=== PATIENT | male | born 1990 | race Caucasian/White ===

== ENCOUNTER → 2023-09-05 12:57 | Outpatient (BNVA) | payer SELFPAY | PROVIDERS: Visit Provider Physician Assistant Medical ==

== ENCOUNTER 2024-10-24 12:52 | Outpatient (AMB) | payer OTHER, SELFPAY ==
[2024-10-24 12:58] VITALS: BP 130/92; PULSE 62; RESP 18; TEMP 36.5; O2SAT 98; BMI 27.4
--- NOTE | 2024-10-24 12:58 | A.OFFPC_ITS ---
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 Transferring care from [place], [place] area; patient reports that he was last seen by previous PCP approximately 5-6 years ago. Medical records have not been requested and have not been received. 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 Reports that he is not sure how much of his depression is treatable He is currently not on any medication at this time The patient reports right shoulder pain, lower back pain and right upper quadrant pain that started after lifting something heavy at work. Reports that the pain is manageable, and he has been learning how to go through his day with it. However, the pain does increased during physical exertion. 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 Reports that exercise makes it better but is depression has been preventing him from exercising The patient denies chest pain, sob, heart palpitation and dizziness PFSH Medical History (Updated 10/24/24 @ 21:05 by CORINNA Goodman) ADHD Depression Surgical History H/O wisdom tooth extraction Family History Father FH: mental illness Chronic depression Mother No problems noted. 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 1. Little interest or pleasure in doing things: nearly every day 2. Feeling down, depressed, or hopeless: nearly every day 3. Trouble falling or staying asleep, or sleeping too much: nearly every day 4. Feeling tired or having little energy: nearly every day 5. Poor appetite or overeating: nearly every day 6. Feeling bad about yourself - or that you are a failure or have let yourself or your family down: nearly every day 7. Trouble concentrating on things, such as reading the newspaper or watching television: nearly every day 8. Moving or speaking so slowly that other people could have noticed. Or the opposite - being so fidgety or restless that you have been moving around a lot more than usual: nearly every day 9. Thoughts that you would be better off or of hurting yourself in some way: nearly every day Total score: 27 Depression Screening Interpretation: Positive Depression Screening Done: Yes 13527 - PHQ-9 Billing: Yes Source: Developed by Drs. Juanito John, Brian Arora and colleagues, with an educational drew from [email or web address]. Thrive Questionnaire Date Thrive assessed: 10/24/24 I am a: Patient What is your living situation today?: I do not have a steady places to live I am living in a car Within the past 12 months, did the food you bought not last and you didn't have the money to get more?: Never true Within the past 12 months, did you worry whether your food would run out before you got money to buy more?: Never true Do you have trouble paying for medicines?: I choose not to answer this question Do you have trouble getting transportation to medical appointments?: No Do you have trouble paying your heating and electricity bill?: I choose not to answer this question Do you have trouble taking care of your child, family member or friend?: No Do you have trouble with day-to-day activities such as bathing, preparing meals, shopping, managing finances, etc.?: Yes Are you currently unemployed and looking for a job?: No Are you interested in more education?: Yes Please select the resources that you would like help with: Daily support and Education Currently or been in a relationship where the following occur: I choose not to answer THRIVE Score: 1 AUDIT C Alcohol Use Questionnaire (AUDIT-C) 1. How often do you have a drink containing alcohol?: Never Total Score: 0 LOVELY-7 AMB Questionnaire LOVELY-7 Date LOVELY - 7 assessed: 10/24/24 Feeling nervous, anxious, or on edge: 3 = Nearly every day Not being able to stop or control worryin = Nearly every day Worrying too much about different things: 3 = Nearly every day Trouble relaxin = Nearly every day Being so restless that it is hard to sit still: 3 = Nearly every day Becoming easily annoyed or irritable: 3 = Nearly every day Feeling afraid as if something awful might happen: 3 = Nearly every day Total LOVELY-7 score (0-4 normal; 5-9 mild; 10-14 moderate; 15-21 severe): 21 Source: Developed by Drs. Juanito John, Brian Arora and colleagues, with an educational drew from [email or web address]. LOVELY-7 Assessment Billing LOVELY-7 Assessment Tool: LOVELY-7 Assessment 74187 Review of Systems Const Denies headache(s) Eyes Denies loss of vision ENT Denies vertigo, Denies dizziness, Denies headache(s) and Denies sore throat Card Denies chest pain, Denies leg edema and Denies lightheadedness Resp Denies cough, Denies hemoptysis and Denies wheezing GI Denies abdominal pain, Denies melena, Denies constipation, Denies diarrhea and Denies vomiting Denies dysuria, Denies urinary frequency and Denies urinary urgency Musc Reports back pain, Reports arthralgias (Right shoulder), Denies joint swelling, Denies numbness and Denies tingling Skin/Breast Reports other (right shoulder lump) Neuro Denies Abnormal speech present, Denies behavioral changes, Denies vertigo, Denies dizziness, Denies headache(s), Denies loss of vision, Denies memory loss, Denies numbness and Denies tingling Psych Reports anxiety, Denies behavioral changes, Reports depression, Denies memory loss, Denies panic attacks, Denies homicidal ideation and Denies suicidal ideation Kartik/Lymph Denies easy bleeding and Denies easy bruising Aller/Immun Denies wheezing Physical exam (Primary Care) Vital Signs: Last Vital Signs Temp 97.7 F 10/24/24 12:58 Pulse 62 10/24/24 12:58 Resp 18 10/24/24 12:58 BP 130/92 H 10/24/24 12:58 Pulse Ox 98 10/24/24 12:58 Oxygen Delivery Method Room Air 10/24/24 12:58 BMI result Body Mass Index 27.4 Tobacco/Smoking Status: Tobacco use Status Tobacco use date assessed 10/24/24 10/24/24 13:13 Patient Tobacco Use Status Never used Tobacco 10/24/24 13:13 e-Cigarette/Vaping Use Never Used 10/24/24 13:13 PHQ-9: PHQ-9 Score PHQ-9: Total score 27 10/24/24 13:50 Depression Screening Interpretation: Positive Thrive Assessment: Date of Thrive Assessment Date Thrive assessed 10/24/24 10/24/24 13:13 Currently or been in a relationship where the following occur: I choose not to answer Const General: healthy appearing, no acute distress, alert and awake Nutritional Appearance: well nourished Orientation/consciousness: oriented to person, oriented to place and oriented to time [facility] Ears: TM's normal bilaterally General nose exam: Normal nasal mucous membranes and turbinates present Eyes Conjunctivae: conjunctivae normal Sclerae: sclerae normal Pupils: Equal, round and reactive pupils present Neck Neck: Yes no lymphadenopathy and Yes no JVD Thyroid: Thyroid normal Carotids: no bruits Neck images: 2 1. right should soft mass Resp Effort & Inspection: normal respiratory effort and not tachypneic Auscultation: no crackles, no rales, no rhonchi and no wheezes Cardio Rate: regular rate Rhythm: regular rhythm Heart sounds: no murmurs and normal S1 and S2 GI Palpation (GI): Soft to palpation, nontender, no hepatomegaly and no splenomegaly Auscultation: normal bowel sounds Back/Spine/Pelvis Cervical Spine: No Cervical spine tenderness Thoracic/Lumbar Spine: No thoracic spinal tenderness and No lumbar spinal tenderness Skin General skin exam: no rashes or lesions noted and dry skin Neuro General: oriented to person, oriented to place and oriented to time Cranial nerves: Yes Equal, round and reactive pupils present Speech: No Abnormal speech present Gait exam (Neuro): Normal gait present Motor exam (neuro): no tremor noted Extrem Right upper extremity: full ROM Left upper extremity: full ROM Right lower extremity: full ROM; no edema Left lower extremity: full ROM; no edema Psych Mental Status: mental status grossly normal Speech and movement: Normal speech and movement present Affect: normal affect Attitude: cooperative Thought process: Normal thought process present Coding Level of Care Code New Pt Level 4 (37572) Diagnoses Depression, unspecified depression type F32.A Depression Type: unspecified Attention deficit hyperactivity disorder (ADHD), unspecified ADHD type F90.9 Attention deficit-hyperactivity disorder type: unspecified Mass of joint of right shoulder M25.811 Right upper quadrant pain R10.11 Acute bilateral low back pain without sciatica M54.50 Back pain location: low back pain Chronicity: acute Back pain laterality: bilateral Sciatica presence: without sciatica Additional Codes LOVELY-7 Assessment Billing - LOVELY-7 Assessment Tool: LOVELY-7 Assessment 38738 ([id number]) PHQ-9 - 41015 - PHQ-9 Billing: Yes ([id number]) Time Spent (min) 41 Assessment & Plan Assessment & Plan (1) Depression: Code(s): F32.A - Depression, unspecified Category: Medical Qualifiers: Depression Type: unspecified Qualified Code(s): F32.A - Depression, unspecified Plan: The patient reports a history depression and strong family history of depression. The patient father was depressed to the point of not leaving the house. Reports that he had a psychiatrist about 6 years ago and used to take fluoxetine and a stimulant for ADHD. The patient denies SI/HI I will refer the patient to psychiatry to evaluate and treat (2) ADHD: Code(s): F90.9 - Attention-deficit hyperactivity disorder, unspecified type Category: Medical Qualifiers: Attention deficit-hyperactivity disorder type: unspecified Qualified Code(s): F90.9 - Attention-deficit hyperactivity disorder, unspecified type Plan: The patient reports that he used to take a stimulant for this in the past, will refer the patient to psychiatry (3) Mass of joint of right shoulder: Code(s): M25.811 - Other specified joint disorders, right shoulder Category: Medical Plan: A soft tissue US order to further evaluate (4) Right upper quadrant pain: Code(s): R10.11 - Right upper quadrant pain Category: Medical Plan: The patient felt pain in his right upper quadrant after heavy lifting at work; he is endorsing pain with RUQ palpation . Informed the patient that this might be a muscle strain, but giving the his liver and gallbladder are in this region, will order and abdominal US to further evaluate (5) Back pain: Code(s): M54.9 - Dorsalgia, unspecified Category: Medical Qualifiers: Back pain location: low back pain Chronicity: acute Back pain laterality: bilateral Sciatica presence: without sciatica Qualified Code(s): M 54.50 - Low back pain, unspecified Plan: Lumbar x-ray ordered Orders: Orders 2 US abdomen limited Today R10.11 - Right upper quadrant pain, Z00.00 - Encounter for general adult medical examination without abnormal findings, Z77.018 - Contact with and (suspected) exposure to other hazardous metals XR lumbar spine 2-3V Today M54.50 - Low back pain, unspecified, Z00.00 - Encounter for general adult medical examination without abnormal findings, Z77.018 - Contact with and (suspected) exposure to other hazardous metals TSH reflex Free T4 Today Z00.00 - Encounter for general adult medical examination without abnormal findings, Z77.018 - Contact with and (suspected) exposure to other hazardous metals UA CC w/rflx Micro + Cult Today Z00.00 - Encounter for general adult medical examination without abnormal findings, Z77.018 - Contact with and (suspected) exposure to other hazardous metals Lipid Panel Today Z00.00 - Encounter for general adult medical examination without abnormal findings, Z77.018 - Contact with and (suspected) exposure to other hazardous metals Vitamin D 25-OH Total Today Z00.00 - Encounter for general adult medical examination without abnormal findings, Z77.018 - Contact with and (suspected) exposure to other hazardous metals US extremity nonvascular Today M25.811 - Other specified joint disorders, right shoulder Complete Blood Count Auto Diff Today Z00.00 - Encounter for general adult medical examination without abnormal findings, Z77.018 - Contact with and (suspected) exposure to other hazardous metals Comprehensive [place]. Panel Fast Today Z00.00 - Encounter for general adult medical examination without abnormal findings, Z77.018 - Contact with and (suspected) exposure to other hazardous metals Glucose Fasting Today Z00.00 - Encounter for general adult medical examination without abnormal findings, Z77.018 - Contact with and (suspected) exposure to other hazardous metals Heavy Metals Screen Blood Today Z00.00 - Encounter for general adult medical examination without abnormal findings, Z77.018 - Contact with and (suspected) exposure to other hazardous metals Referrals 2 Psychiatry Referral F41.9 - Anxiety disorder, unspecified
--- OUTSIDE RECORDS SUMMARY | 2024-10-24 15:25 | XMS_ITS | Data Portability ---
Author Organization [facility] [place] Address [address] [place] [id number] Care Team Providers Care Scientific Informatics Leader Name Role Phone YURIY FREIRE Primary Care Provider Assessment Encounter Date Assessment Date Assessment LastModified by Organization Details LastModified Time 09/28/2022 09/28/2022 He has right shoulder pain. He has that mass anteriorly that he says was not present before. It looks to me like a lipoma but if it was not present prior to this weekend then it's most likely a fluid-filled cyst. He either tore the rotator cuff or has a labral tear that leaked out some fluid. He lives up in [place] and he's down here working. I'm going to keep him out of work for now and then he's just going to end up going back home. I told him he needs to find an orthopedist up there and I recommended he get an MRI of that shoulder. Not available 09/29/2022 11:25:28 Plan of Treatment Reminders Order Date Submit Date Provider Last Modified By Organization Details Last Modified Time Details Appointments None record ed. Lab None record ed. Referral None record ed. Procedures None record ed. Surgeries None record ed. Imaging None record ed. Medication Orders None record ed. Patient TargetsNo targets recorded. Patient InstructionsNo instructions recorded. Reason for Referral None Reported. Problems Name Problem SNOMED Code Status Onset Date Resolution Date Notes Provider Name and Address Organization Details Recorded Time Pain of right shoulder joint [id number] 00 Active 2022 ROSA LI MD [address] [place], [id number], [facility] 09:37:55 Problem Notes None recorded. Medical Equipment None Reported. Allergies No known drug allergies Medications Not known to be on any medication Vitals Date Recorded Body height Body mass index (BMI) Body weight Provider Name and Address Organization Details Last Updated DateTime 09/28/2022 172.72 cm 26.6 kg/m2 16449.66 g ROSA LI MD [address], [place], [address], [facility] 09/28/2022 09:33:00 Social History Question Answer Notes LastModified by Organizat ion Details LastModified Time Tobacco Smoking Status Never Smoker ROSA LI MD [address], [place], [address], [facility] 09/28/2022 09:25:54 What Is Your Level Of Alcohol Consumption? Moderate [email or web address] Information not available 09/28/2022 Are You Blind Or Do You Have Difficulty Seeing? No [email or web address] Information not available 09/28/2022 What Is Your Level Of Caffeine Consumption? Moderate [email or web address] Information not available 09/28/2022 Are You Deaf Or Do You Have Serious Difficulty Hearing? No [email or web address] Information not available 09/28/2022 Do You Or Have You Ever Used E-cigarettes Or Vape? 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 Right [email or web address] Information not available 09/28/2022 Do You Have A Medical Power Of Compressor Repairer? No [email or web address] Information not available 09/28/2022 What Was The Date Of Your Most Recent Tobacco Screening? 09/28/2022 [email or web address] Information not available 09/28/2022 How Much Tobacco Do You Smoke? No [email or web address] Information not available 09/28/2022 Do You Use Any Illicit Or Recreational Drugs? No [email or web address] Information not available 09/28/2022 Have You Used IV Drugs? No [email or web address] Information not available 09/28/2022 Do You Or Have You Ever Used Any Other Forms Of Tobacco Or Nicotine? No [email or web address] Information not available 09/28/2022 Sex: Unknown Functional Status Question Answer Note LastModified by Organization D etails LastModified Time Are you able to care for yourself? Yes [email or web address] Information n ot available 09/28/2022 What is your exercise level? None [email or web address] Information not available 09/28/2022 Mental Status None recorded. Family History Nothing Reported. Medical History No medical history recorded. Past Encounters Encounter ID Performer Location Encounter Start Date Encounter Closed Date Diagnosis/Indication Diagnosis SNOMED-CT Code Diagnosis ICD10 Code Diagnosis Note [id number] ROSA LI MD [facility] [address] [place] [address] 09/28/2022 08:39:56 09/28/2022 15:42:31 Pain of right shoulder joint [id number] M25.511 Health Concerns Section Related Observation LastModified by Organization Detai ls LastModified Time None Recorded Concern Status LastModified by Organization Details LastModified Time None Recorded Advance Directives Directive None Recorded Payers Encounter Date Sequence Insurance Name Policy Number Policy Vail Covered Member ID Vail Member ID Guarantor Name 09/28/2022 1 [facility] [id number] Albaro Ryan [id number] Albaro Ryan Notes Date Note Type Note Provider Name and Address Organization Details Recorded Time 09/28/2022 text/html Mr. Ryan is a 32yo male here today for evaluation of right shoulder pain. 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 He started developing pain in the shoulder but never felt a specific pop. He's never had shoulder problems prior to this. He said he rested it for a little bit there at work but then a lump showed up on the right shoulder anteriorly and it's been hurting a lot since. He is wearing a sling and he is in a fair amount of pain. He's been icing it. ROSA LI MD [address], [place], [address], [facility] 09/29/2022 16:52:02
== END 2024-10-24 13:51 | disposition home or self-care (01) ==
LOC: HO.HMCH 12:53
DX: F32.A Depression, unspecified (principal); F90.9 Attention-deficit hyperactivity disorder, unspecified type; M25.811 Other specified joint disorders, right shoulder; R10.11 Right upper quadrant pain; M54.50 Low back pain, unspecified

== ENCOUNTER → 2024-10-24 12:52 | Outpatient (BNVA) | payer OTHER, SELFPAY | DX: F32.A Depression, unspecified (principal); F90.9 Attention-deficit hyperactivity disorder, unspecified type; M25.811 Other specified joint disorders, right shoulder; R10.11 Right upper quadrant pain; M54.50 Low back pain, unspecified | CPT/HCPCS: 96127 ==

== ENCOUNTER 2024-11-30 15:30 | Outpatient (REF) | payer OTHER, SELFPAY ==
--- NOTE | ~2024-11-30 | US_ITS ---
EXAMINATION: US ABDOMEN LIMITED CLINICAL INFORMATION: Right upper quadrant pain. COMPARISON: None available. TECHNIQUE: Real-time imaging of the right upper quadrant abdominal viscera. The exam is limited secondary to overlying bowel gas FINDINGS: PANCREAS: The pancreas completely obscured by gas. LIVER: The liver is normal in size. The liver contour is normal. Parenchymal echogenicity is normal. No focal hepatic lesion. There is no intrahepatic biliary duct dilatation seen. Normal hepatopedal flow seen in the middle portal vein on Doppler exam. GALLBLADDER: The gallbladder is physiologically distended without evidence of stones, sludge, polyps, wall thickening or pericholecystic fluid. There is nonspecific tenderness in right upper quadrant but negative Duran's sign. COMMON BILE DUCT: Normal in caliber measuring 0.3 cm in diameter. RIGHT KIDNEY: There is mild pelvic fullness. No renal calculi or focal parenchymal lesions. The kidney measures 10.5 cm in maximum dimension. FREE FLUID: None. US/US abdomen limited IMPRESSION: No echogenic gallstones or wall thickening. Minimal tenderness in the right upper quadrant but negative Duran's sign. Liver and CBD is normal. Mild right kidney fullness. No echogenic stones seen. Electronically signed by: Sathish Edwards MD 12/03/2024 07:52 AM EDT RP
--- NOTE | ~2024-11-30 | US_ITS ---
EXAMINATION: US EXTREMITY, NONVASCULAR CLINICAL INFORMATION: Palpable mass of right shoulder. COMPARISON: None available. TECHNIQUE: Grayscale and color Doppler ultrasound imaging was performed of the right shoulder in the area of clinical concern. FINDINGS: Within the area of clinical concern/palpable abnormality, there is a homogenous ovoid isoechoic to fat circumscribed mass, wider than tall, measuring 4.4 x 0.9 x 3.6 cm, with no internal color vascularity or soft tissue elements. This is consistent with a benign lipoma. There is no soft tissue mass, abnormal fluid collection, or abnormal lymph nodes identified. US/US extremity nonvascular IMPRESSION: Palpable abnormality corresponds with a 4.4 x 0.9 x 3.6 cm benign lipoma. Electronically signed by: Brady Solorio MD 12/03/2024 09:21 AM EDT
[2024-11-30 16:35] LABS: MANUAL DIFF FLAG NO
[2024-11-30 17:24] LABS: Basophils Percent Auto 0.5 % (0-2); Eosinophils Absolute Auto 0.1 X10*3/uL (0.0-0.4); Eosinophils Percent Auto 0.8 % (0-4); Hematocrit 44.4 % (42.0-52.0); Imm Gran Abs Auto 0.02 X10*3/uL (0.00-0.03); Imm Gran Pct Auto 0.3 % (0.0-0.4); Lymphocytes Absolute Auto 1.5 X10*3/uL (1.2-4.9); Lymphocytes Percent Auto 23.5 % (20-40); Mean Corpuscular HGB Conc 33.8 g/dl (31.0-36.0); Mean Corpuscular Hemoglobin 27.5 pg (27.0-33.0); Mean Corpuscular Volume 81.3 fL (80.0-98.0); Mean Platelet Volume 9.8 fL (9.4-12.4); Monocytes Absolute Auto 0.6 X10*3/uL (0.1-1.2); Monocytes Percent Auto 9.7 % (2-11); Neutrophils Absolute Auto 4.2 x10*3/uL (2.0-8.3); Neutrophils Percent Auto 65.2 % (45-73); Platelet Count 364 X10*3/uL (160-400); Red Blood Count 5.46 X10*6/uL (4.60-5.80); Red Cell Distribution Width 13.4 % (11.0-16.0); White Blood Count 6.4 X10*3/uL (4.8-10.8)
[2024-11-30 17:43] LABS: Appearance Urine Clear; Color Urine Yellow; Glucose Urine UA Negative (Negative); Leukocyte Esterase Urine Negative (Negative); Nitrite Urine Negative (Negative); Specific Gravity - Urine >= 1.030 (1.005-1.025); Urine Blood Negative (Negative); Urine Ketones 40 mg/dL (Negative); Urine Protein Negative (Neg-Trace)
[2024-11-30 18:40] LABS: Alanine Aminotransferase 27 U/L (0-40); Albumin Level 4.7 g/dL (3.5-5.0); Alkaline Phosphatase 62 U/L (39-117); Anion Gap 14 (12-20); Aspartate Amino Transferase 26 U/L (5-37); Bilirubin Total 1.3 mg/dL (0.0-1.0); Blood Urea Nitrogen 25 mg/dL (9-16); Calcium 9.7 mg/dL (8.4-10.2); Carbon Dioxide 27 mmol/L (22-29); Chloride 104 mmol/L (96-108); Cholesterol 226 mg/dL (<200); Estimated Glomerular Filt Rate > 60; Glucose Fasting 84 mg/dL (60-99); HDL Cholesterol 56 mg/dL (>40); LDL Cholesterol Calculated 155 mg/dL (<100); Potassium 4.2 mmol/L (3.3-5.1); Sodium 141 mmol/L (135-145); Total Protein 7.3 g/dL (6.5-8.0); Triglycerides 79 mg/dL (<150)
[2024-11-30 18:59] LABS: TSH reflex Free T4 0.76 uIU/mL (0.32-4.0); Vitamin D 25-OH Total 23.2 ng/mL (>30)
[2024-12-04 12:59] LABS: Arsenic, Blood <3 mcg/L (<23); Lead, Blood <1.0 mcg/dL (<3.5); Mercury, Blood <4 mcg/L (<=10)
== END 2024-11-30 15:31 | disposition home or self-care (01) ==
LOC: HO.US 15:30
DX: R10.11 Right upper quadrant pain (principal); Z00.00 Encounter for general adult medical examination without abnormal findings; Z77.018 Contact with and (suspected) exposure to other hazardous metals; M25.811 Other specified joint disorders, right shoulder; Z13.6 Encounter for screening for cardiovascular disorders
CPT/HCPCS: 36415; 76705; 76882; 80053; 80061; 81003; 82175; 82306; 83655; 83825; 84443; 85025

== ENCOUNTER → 2024-11-30 15:32 | Outpatient (BNV) | payer OTHER, SELFPAY | PROVIDERS: Visit Provider Radiology Diagnostic Radiology | DX: R22.31 Localized swelling, mass and lump, right upper limb (principal); R10.11 Right upper quadrant pain | CPT/HCPCS: 76705; 76882 ==

== ENCOUNTER 2025-02-15 10:23 | Outpatient (AMB) | payer OTHER, SELFPAY ==
[2025-02-15 10:27] VITALS: BP 116/70; PULSE 64; TEMP 35.9; O2SAT 98; BMI 27.1
--- NOTE | 2025-02-15 10:27 | A.OFFPC_ITS ---
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 Accompanied by: Self / Same As Patient Allergies codeine (CODEINE) Allergy (Unknown, Verified 02/15/25 10:39) RASH Medication List - Last Reconciled 02/15/25 by CORINNA Goodman bupropion HCl SR 100 mg PO DAILY Tobacco use date assessed: 02/15/25 Dental Screening Dental Screen Date: 02/15/25 Did you have a dental visit in the last 12 months?: Yes Did you have a dental problem in the last 6 months where you did not have access to dental care?: No Was dental information given to patient?: Patient has dentist HPI annual exam 2 HPI0 Details The patient is here for annual physical Dentist: up to date Eye:reports that he does not have any problems with his eyes Snellen: Right: Left: Corrected vision:no STI screening: n/a Colonoscopy: n/a Pap Smer:n/a PHQ-9:n/a Flu:does not usually COVID: x2 Tdap: reports having this recently but cannot remembers the exact date Diet: regular Exercise: no exercise The patient is a 34-year-old male presenting with depression. He has encountered difficulties in accessing psychiatric care, with many organizations offering only telehealth services or being unable to accept new patients. He experiences significant stress and distressing internal dialogue, which he attempts to manage by focusing on work and sleep. The patient denies panic attacks or significant anxiety but reports occasional racing thoughts, which is describes has not flight of ideas but more worrying about his life. He has previously used fluoxetine without recalling its effectiveness and has not tried Wellbutrin, though he has researched it. 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 He has hypercholesterolemia and has been advised to avoid high-cholesterol foods. He has received two COVID-19 vaccinations and a recent tetanus shot. [facility] Medical History ADHD Depression Surgical History H/O wisdom tooth extraction Family History Father FH: mental illness Chronic depression Mother No problems noted. 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 1. Little interest or pleasure in doing things: nearly every day 2. Feeling down, depressed, or hopeless: nearly every day 3. Trouble falling or staying asleep, or sleeping too much: nearly every day 4. Feeling tired or having little energy: nearly every day 5. Poor appetite or overeating: nearly every day 6. Feeling bad about yourself - or that you are a failure or have let yourself or your family down: nearly every day 7. Trouble concentrating on things, such as reading the newspaper or watching television: nearly every day 8. Moving or speaking so slowly that other people could have noticed. Or the opposite - being so fidgety or restless that you have been moving around a lot more than usual: nearly every day 9. Thoughts that you would be better off or of hurting yourself in some way: nearly every day Total score: 27 Depression Screening Interpretation: Positive Depression Screening Done: Yes Source: Developed by Drs. Juanito John, Luana La, Brian John and colleagues, with an educational drew from [employer]. Thrive Questionnaire Date Thrive assessed: 02/15/25 I am a: Patient What is your living situation today?: I do not have a steady places to live I am living in a car Within the past 12 months, did the food you bought not last and you didn't have the money to get more?: Never true Within the past 12 months, did you worry whether your food would run out before you got money to buy more?: Never true Do you have trouble paying for medicines?: I choose not to answer this question Do you have trouble getting transportation to medical appointments?: No Do you have trouble paying your heating and electricity bill?: I choose not to answer this question Do you have trouble taking care of your child, family member or friend?: No Do you have trouble with day-to-day activities such as bathing, preparing meals, shopping, managing finances, etc.?: Yes Are you currently unemployed and looking for a job?: No Are you interested in more education?: Yes Please select the resources that you would like help with: Daily support and Education Currently or been in a relationship where the following occur: I choose not to answer THRIVE Score: 1 AUDIT C Alcohol Use Questionnaire (AUDIT-C) 1. How often do you have a drink containing alcohol?: Never 3. How often do you have six or more drinks on one occasion?: Never Total Score: 0 LOVELY-7 AMB Questionnaire LOVELY-7 Date LOVELY - 7 assessed: 02/15/25 Feeling nervous, anxious, or on edge: 3 = Nearly every day Not being able to stop or control worryin = Nearly every day Worrying too much about different things: 3 = Nearly every day Trouble relaxin = Nearly every day Being so restless that it is hard to sit still: 3 = Nearly every day Becoming easily annoyed or irritable: 3 = Nearly every day Feeling afraid as if something awful might happen: 3 = Nearly every day Total LOVELY-7 score (0-4 normal; 5-9 mild; 10-14 moderate; 15-21 severe): 21 Source: Developed by Drs. Juanito John, Luana La, Brian John and colleagues, with an educational drew from [employer]. LOVELY-7 Assessment Billing LOVELY-7 Assessment Tool: LOVELY-7 Assessment 27298 Review of Systems Const Denies headache(s) Eyes Denies loss of vision ENT Denies vertigo, Denies dizziness, Denies headache(s) and Denies sore throat Card Denies chest pain, Denies leg edema and Denies lightheadedness Resp Denies cough, Denies hemoptysis and Denies wheezing GI Denies abdominal pain, Denies melena, Denies constipation, Denies diarrhea and Denies vomiting Denies dysuria, Denies urinary frequency and Denies urinary urgency Musc Denies arthralgias, Denies joint swelling, Denies numbness and Denies tingling Neuro Denies Abnormal speech present, Denies behavioral changes, Denies vertigo, Denies dizziness, Denies headache(s), Denies loss of vision, Denies memory loss, Denies numbness and Denies tingling Psych Denies anxiety, Denies behavioral changes, Denies depression, Denies memory loss and Denies panic attacks Kartik/Lymph Denies easy bleeding and Denies easy bruising Aller/Immun Denies wheezing Physical exam (Primary Care) Vital Signs: Last Vital Signs Temp 96.7 F L 02/15/25 10:27 Pulse 64 02/15/25 10:27 BP 116/70 02/15/25 10:27 Pulse Ox 98 02/15/25 10:27 Oxygen Delivery Method Room Air 02/15/25 10:27 BMI result Body Mass Index 27.1 Tobacco/Smoking Status: Tobacco use Status Tobacco use date assessed 02/15/25 02/15/25 10:34 Patient Tobacco Use Status Never used Tobacco 02/15/25 10:27 e-Cigarette/Vaping Use Never Used 02/15/25 10:27 PHQ-9: PHQ-9 Score PHQ-9: Total score 27 02/15/25 10:40 Depression Screening Interpretation: Positive Thrive Assessment: Date of Thrive Assessment Date Thrive assessed 02/15/25 02/15/25 10:34 Currently or been in a relationship where the following occur: I choose not to answer Const General: healthy appearing, no acute distress, alert and awake Nutritional Appearance: well nourished Orientation/consciousness: oriented to person, oriented to place and oriented to time HENMT Ears: TM's normal bilaterally General nose exam: Normal nasal mucous membranes and turbinates present Eyes Conjunctivae: conjunctivae normal Sclerae: sclerae normal Pupils: Equal, round and reactive pupils present Neck Neck: Yes no lymphadenopathy and Yes no JVD Thyroid: Thyroid normal Carotids: no bruits Neck images: 2 1. Right shoulder lipoma Resp Effort & Inspection: normal respiratory effort and not tachypneic Auscultation: no crackles, no rales, no rhonchi and no wheezes Cardio Rate: regular rate Rhythm: regular rhythm Heart sounds: S1 normal heart sound present, S2 normal heart sound present, no murmurs and normal S1 and S2 GI Palpation (GI): Soft to palpation, nontender, no hepatomegaly and no splenomegaly Auscultation: normal bowel sounds General: Yes no CVA tenderness Back/Spine/Pelvis Back: no CVA tenderness Skin General skin exam: dry skin and other (Right anterior shoulder lipoma) Neuro General: oriented to person, oriented to place and oriented to time Cranial nerves: Yes Equal, round and reactive pupils present Speech: No Abnormal speech present Gait exam (Neuro): Normal gait present Motor exam (neuro): no tremor noted Deep tendon reflexes (DTR's): Right triceps reflex intensity grade: 2+, Left triceps reflex intensity grade: 2+, Rt Biceps (C5, C6): 2+, Left biceps reflex intensity grade: 2+, Right brachioradialis reflex intensity grade: 2+, Left brachioradialis reflex intensity grade: 2+, Right patellar reflex intensity grade: 2+ and Left patellar reflex intensity grade: 2+ Extrem Right upper extremity: full ROM Left upper extremity: full ROM Right lower extremity: full ROM; no edema Left lower extremity: full ROM; no edema Psych Mental Status: mental status grossly normal Speech and movement: Normal speech and movement present Affect: normal affect Attitude: cooperative Thought process: Normal thought process present Results Reviewed Results Reviewed: Laboratory Tests 11/30/24 11/30/24 16:34 Unknown WBC 6.4 RBC 5.46 Hgb 15.0 Hct 44.4 MCV 81.3 MCH 27.5 MCHC 33.8 RDW 13.4 Plt Count 364 MPV 9.8 Immature Gran % (Auto) 0.3 Sodium 141 Potassium 4.2 Chloride 104 Carbon Dioxide 27 Anion Gap 14 BUN 25 H Creatinine 0.92 Estimated GFR > 60 Fasting Glucose 84 Calcium 9.7 Total Bilirubin 1.3 H AST 26 ALT 27 Alkaline Phosphatase 62 Total Protein 7.3 Albumin 4.7 Triglycerides 79 Cholesterol 226 H LDL Cholesterol, Calc 155 H HDL Cholesterol 56 25-OH Vitamin D Total 23.2 L TSH 0.76 Urine Color Yellow Urine Appearance Clear Urine pH 6.0 Ur Specific [place] >= 1.030 H Urine Protein Negative Urine Glucose (UA) Negative Urine Ketones 40 Urine Blood Negative Urine Nitrite Negative Ur Leukocyte Esterase Negative Coding Level of Care Code Est Pt Prev Care 18-39y([id number]) Diagnoses Annual physical exam Z00.00 Depression, unspecified depression type F32.A Depression Type: unspecified Attention deficit hyperactivity disorder (ADHD), unspecified ADHD type F90.9 Attention deficit-hyperactivity disorder type: unspecified Mass of joint of right shoulder M25.811 Right upper quadrant pain R10.11 Acute bilateral low back pain without sciatica M54.50 Back pain location: low back pain Chronicity: acute Back pain laterality: bilateral Sciatica presence: without sciatica Additional Codes LOVELY-7 Assessment Billing - LOVELY-7 Assessment Tool: LOVELY-7 Assessment 74234 ([id number]) Time Spent (min) 36 Assessment & Plan Assessment & Plan (1) Annual physical exam: Code(s): Z00.00 - Encounter for general adult medical examination without abnormal findings Category: Medical Plan: Preventative guidelines and recent labs reviewed with the patient (2) Depression: Code(s): F32.A - Depression, unspecified Category: Medical Qualifiers: Depression Type: unspecified Qualified Code(s): F32.A - Depression, unspecified Plan: The patient reports a history depression and strong family history of depression. The patient father was depressed to the point of not leaving the house. Reports that he had a psychiatrist about 6 years ago and used to take fluoxetine and a stimulant for ADHD. The patient denies SI/HI I was referred the patient to psychiatry with the patient has been having issues finding a provider willing to do on-site visits. Bupropion HCl SR 100 mg daily started. Reach out to the communication navigation staff to assist the patient in finding a psychiatrist as soon as possible. Follow up appointment in 4 weeks to re-evaluate (3) ADHD: Code(s): F90.9 - Attention-deficit hyperactivity disorder, unspecified type Category: Medical Qualifiers: Attention deficit-hyperactivity disorder type: unspecified Qualified Code(s): F90.9 - Attention-deficit hyperactivity disorder, unspecified type Plan: The patient reports that he used to take a stimulant for this in the past, will refer the patient to psychiatry (4) Mass of joint of right shoulder: Code(s): M25.811 - Other specified joint disorders, right shoulder Category: Medical Plan: A soft tissue US done on on 11/30/2024 shows a benign lipoma measuring 4.4 x 0.9 x3 0.6 cm Patient reports that this isn't bothersome (5) Right upper quadrant pain: Code(s): R10.11 - Right upper quadrant pain Category: Medical Plan: The patient felt pain in his right upper quadrant after heavy lifting at work; he is endorsing pain with RUQ palpation . Informed the patient that this might be a muscle strain, but giving the his liver and gallbladder are in this region on prior visit. Abdominal ultrasound done on 11/30/2024 shows: No echogenic gallstones are wall thickening. Minimal tenderness in the right upper quadrant but negative Duran's sign. The patient is denying pain at today's visit. (6) Back pain: Code(s): M54.9 - Dorsalgia, unspecified Category: Medical Qualifiers: Back pain location: low back pain Chronicity: acute Back pain laterality: bilateral Sciatica presence: without sciatica Qualified Code(s): M 54.50 - Low back pain, unspecified Plan: Patient reports on his previous visit similarly chronic lower back pain. A lumbar x-ray was ordered on 10/24/2024; this has not been completed as yet, however, the patient reports that his back isn't bad today and is feeling much better. Medications: New 2 bupropion HCl SR 100 mg PO DAILY 30 tabs 3RF bupropion HCl SR 100 mg PO DAILY 90 tabs 3RF
--- OUTSIDE RECORDS SUMMARY | 2025-02-15 10:39 | XMS_ITS | Clinical Summary ---
Author Organization [facility] Address [address] [place] [phone] Phone Care Team Providers Care Interior Design Professor Name Role Phone Lien Ruiz Primary Care Provider [phone] Allergies Active Allergy Reactions Criticality Noted Date Comments Codeine Rash Low 03/19/2018 Medications No known medications Social History Tobacco Use Types Packs/Day Years Used Date Smoking Tobacco: Never Smokeless Tobacco: Never Alcohol Use Standard Drinks/Week Comments Yes 0 (1 standard drink = 0.6 oz pur e alcohol) occasional Education Answer Date Recorded Are you interested in more education? Not on alessandro e 11/19/2022 Are you concerned about learning? Not on file 11/19/2022 No 11/19/2022 No 11/19/2022 Digital Access Answer Date Recorded No 12/20/2022 No 12/20/2022 No 12/20/2022 Reliable internet access at home? Not on file 12/20/2022 Device with a working camera? Not on file Sex and Gender Information Value Date Recorded Sex Assigned at Not on file Legal Sex Male 9:08 PM EDT Gender Identity Not on file Sexual Orientation Not on file Last Filed Vital Signs Vital Sign Reading Time Taken Comments Blood Pressure 150/97 03/19/2018 7:45 AM EDT Pulse 49 03/19/2018 7:45 AM EDT Temperature 36.7 C (98 F) 03/19/2018 7:08 AM EDT Respiratory Rate 16 03/19/2018 7:45 AM EDT Oxygen Saturation 96% 03/19/2018 7:45 AM EDT Inhaled Oxygen Concentration - - Weight 72.6 kg (160 lb) 03/19/2018 4:28 AM EDT Height 172.7 cm (5' 8 ) 03/19/2018 4:28 AM EDT Body Mass Index 24.33 03/19/2018 4:28 AM EDT Plan of Treatment Health Maintenance Due Date Last Done Comments LIPID PANEL 1988 DEPRESSION SCREENING 2000 HEPATITIS C SCREENING 2006 HIV ONE-TIME SCREENING (18-6 5 YEARS) 2006 COVID-19 VACCINE (3 - 2023-2 5 season) 2024 07/28/2021, 10/23/2020 Adult Td,Tdap Booster 03/28/2027 03/28/2017 SMOKING STATUS SCREENING (On ce After 26 Yrs) Completed 11/22/2021 HEPATITIS A VACCINES Aged Out No long er eligible based on patient's age to complete this topic HIB VACCINES Aged Out No longer eligi ble based on patient's age to complete this topic MENINGOCOCCAL VACCINES (ACWY) Aged Out No longer eligible based on patient's age to complete this topic MENINGOCOCCAL VACCINES (B) Aged Out N o longer eligible based on patient's age to complete this topic PNEUMOCOCCAL VACCINES (0-49 years) Aged Out No longer eligible b ased on patient's age to complete this topic Medical Devices Not on file Insurance [facility] Care Teams Interior Design Professor Relationship Specialty Start Date End Date [place] [id number] [email or web address] PCP - General Unknown Provider Specialty 01/19/19 Additional Source Comments The information contained in this document represents components of the legal health record. It is not the complete legal health record.[facility]
--- OUTSIDE RECORDS SUMMARY | 2025-02-15 10:39 | XMS_ITS | Data Portability ---
Author Organization [facility] [place] Address [address] [place] [phone] Care Team Providers Care Convention Planner Name Role Phone YURIY FREIRE Primary Care [...] out some fluid. He lives up in [place] and he's down here working. I'm going to keep him out of work for now and then he's just going to end up going back home. I told him he needs to find an orthopedist up there and I recommended he get an MRI of that shoulder. [email or web address] Not available 09/29/2022 11:25:28 Plan of Treatment [...] Recorded Time Pain of right shoulder joint [id number] 00 Active 2022 ROSA LI MD [address] [place], [address], [facility] 09:37:55 Problem Notes None recorded. Medical Equipment None Reported. Allergies No known drug allergies Medications Not known to be on any medication Vitals Date Recorded Body height Body mass index (BMI) Body weight Provider Name and Address Organization Details Last Updated DateTime 09/28/2022 172.72 cm 26.6 kg/m2 65250.66 g ROSA LI MD [address], [place], [address], [facility] 09/28/2022 09:33:00 Social History Question Answer Notes LastModified by Organizat ion Details LastModified Time Tobacco Smoking Status Never Smoker ROSA LI MD [address], [place], [address], [facility] 09/28/2022 09:25:54 Are You Blind Or Do You Have Difficulty Seeing? No [email or web address] Information not available 09/28/2022 What Is Your Level Of Caffeine Consumption? Moderate Information not available 09/28/2022 Are You Deaf Or Do You Have Serious Difficulty Hearing? No [email or web address] Information not available 09/28/2022 Which Of Your Hands Is Dominant? Right [email or web address] Information not available 09/28/2022 Do You Have A Medical Power Of Furnace Operator Oil Or Gas? No [email or web address] Information not available 09/28/2022 What Was The Date Of Your Most Recent Tobacco Screening? 09/28/2022 [email or web address] Information not available 09/28/2022 How Much Tobacco Do You Smoke? No [email or web address] Information not available 09/28/2022 Have You Used IV Drugs? No [email or web address] Information not available 09/28/2022 Sex: Unknown Functional Status Question Answer Note LastModified by Organizat ion Details LastModified Time Do you use any illicit or recreational drugs? No [email or web address] Information not available 09/28/2022 Do you or have you ever used any other forms of tobacco or nicotine? No Information not available 09/28/2022 What is your level of alcohol consumption? Moderate [email or web address] Information not available 09/28/2022 Are you able to care for yourself independently? 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 Never used electronic cigarettes [email or web address] Information not available 09/28/2022 What is your exercise level? None [email or web address] Information not available 09/28/2022 Mental Status None recorded. Family History Nothing Reported. Medical History No medical history recorded. Past Encounters Encounter ID Performer Location Encounter Start Date Encounter Closed Date Diagnosis/Indication Diagnosis SNOMED-CT Code Diagnosis ICD10 Code Diagnosis Note [id number] ROSA LI MD [place] [address] [place] [address] 09/28/2022 08:39:56 09/28/2022 15:42:31 Pain of right shoulder joint [id number] M25.511 Health Concerns Section Related Observation LastModified by Organization Detai ls LastModified Time None Recorded Concern Status LastModified by Organization Details LastModified Time None Recorded Advance Directives Directive None Recorded Payers Insurance Date Sequence Insurance Name Policy Number Policy Vail Covered Member ID Vail Member ID Guarantor Name 10/13/2022 1 [facility] [id number] Albaro Ryan [id number] Albaro Ryan Notes Date Note Type Note [...] it. ROSA LI MD [address], [place], [address], [facility] 09/29/2022 16:52:02
== END 2025-02-15 11:21 | disposition home or self-care (01) ==
LOC: HO.HMCH 10:23
DX: Z00.00 Encounter for general adult medical examination without abnormal findings (principal); F32.A Depression, unspecified; F90.9 Attention-deficit hyperactivity disorder, unspecified type; M25.811 Other specified joint disorders, right shoulder; R10.11 Right upper quadrant pain; M54.50 Low back pain, unspecified

== ENCOUNTER → 2025-02-15 10:23 | Outpatient (BNVA) | payer OTHER, SELFPAY | DX: Z00.00 Encounter for general adult medical examination without abnormal findings (principal); F32.A Depression, unspecified; D17.39 Benign lipomatous neoplasm of skin and subcutaneous tissue of other sites; E78.00 Pure hypercholesterolemia, unspecified; F90.9 Attention-deficit hyperactivity disorder, unspecified type; R10.11 Right upper quadrant pain; M54.50 Low back pain, unspecified | CPT/HCPCS: 96127 ==

== ENCOUNTER 2025-03-29 13:30 | Outpatient (AMB) | payer OTHER, SELFPAY ==
--- NOTE | 2025-03-29 13:15 | MHC.PC.OV ---
Intake Visit Reasons: depression-could be telehealth Zinc Skimmer Required: No Allergies codeine (CODEINE) Allergy (Unknown, Verified 03/29/25 13:53) RASH Medication List - Last Reconciled 03/29/25 by CORINNA Goodman bupropion HCl SR 100 mg PO DAILY Tobacco use date assessed: 03/29/25 Dental Screening Dental Screen Date: 03/29/25 Did you have a dental visit in the last 12 months?: Yes Did you have a dental problem in the last 6 months where you did not have access to dental care?: No Was dental information given to patient?: Patient has dentist HPI depression-could be telehealth HPI Details This is a medically necessary visit as the patient would typically be seen in the office, however, the patient is unable to come in the office so the visit was converted to an audiovisual, telephone visit format with patient's consent and request. Patient understands that this visit was in place of an in person visit and is aware of the risks of communicating via phone/computer and verbally consents The patient is a 34-year-old male with past medical history of ADHD, depression and some anxiety. He is presenting via telehealth today to evaluate his depression. At previous appointment the patient was started on Wellbutrin 100 mg daily. He has been trying to find a psychiatrist without any much success. Patient verbalized that he did received an appointment which will be 15 minutes after this appointment with a psychiatrist in [place]. The patient travels for work and this has been complicating the finding of a steady reliable psychiatry care. The patient reports that the Wellbutrin has not helped much but he is not in a worse place than he was before. Discussed with the patient that it does not make sense changing anything sense he will be talking to a psychiatrist after this appointment. Will defer to the psychiatrist and follow up with the patient in 3 months to see what changes were made and how we could assist in this process. [facility] Medical History ADHD Depression Surgical History H/O wisdom tooth extraction Family History Father FH: mental illness Chronic depression Mother No problems noted. 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 1. Little interest or pleasure in doing things: nearly every day 2. Feeling down, depressed, or hopeless: nearly every day 3. Trouble falling or staying asleep, or sleeping too much: nearly every day 4. Feeling tired or having little energy: nearly every day 5. Poor appetite or overeating: nearly every day 6. Feeling bad about yourself - or that you are a failure or have let yourself or your family down: nearly every day 7. Trouble concentrating on things, such as reading the newspaper or watching television: nearly every day 8. Moving or speaking so slowly that other people could have noticed. Or the opposite - being so fidgety or restless that you have been moving around a lot more than usual: nearly every day 9. Thoughts that you would be better off or of hurting yourself in some way: nearly every day Total score: 27 Depression Screening Interpretation: Positive Depression Screening Done: Yes Source: Developed by Drs. Juanito John, Luana La, Brian John and colleagues, with an educational drew from [employer]. Thrive Questionnaire Date Thrive assessed: 03/29/25 I am a: Patient What is your living situation today?: I do not have a steady places to live I am living in a car Within the past 12 months, did the food you bought not last and you didn't have the money to get more?: Never true Within the past 12 months, did you worry whether your food would run out before you got money to buy more?: Never true Do you have trouble paying for medicines?: I choose not to answer this question Do you have trouble getting transportation to medical appointments?: No Do you have trouble paying your heating and electricity bill?: I choose not to answer this question Do you have trouble taking care of your child, family member or friend?: No Do you have trouble with day-to-day activities such as bathing, preparing meals, shopping, managing finances, etc.?: Yes Are you currently unemployed and looking for a job?: No Are you interested in more education?: Yes Currently or been in a relationship where the following occur: I choose not to answer THRIVE Score: 1 AUDIT C Alcohol Use Questionnaire (AUDIT-C) 1. How often do you have a drink containing alcohol?: Never 3. How often do you have six or more drinks on one occasion?: Never Total Score: 0 LOVELY-7 AMB Questionnaire LOVELY-7 Date LOVELY - 7 assessed: 03/29/25 Feeling nervous, anxious, or on edge: 3 = Nearly every day Not being able to stop or control worryin = Nearly every day Worrying too much about different things: 3 = Nearly every day Trouble relaxin = Nearly every day Being so restless that it is hard to sit still: 3 = Nearly every day Becoming easily annoyed or irritable: 3 = Nearly every day Feeling afraid as if something awful might happen: 3 = Nearly every day Total LOVELY-7 score (0-4 normal; 5-9 mild; 10-14 moderate; 15-21 severe): 21 Source: Developed by Drs. Juanito John, Luana La, Brian John and colleagues, with an educational drew from [employer]. Review of Systems Const Denies body aches, Denies chills, Denies fever(s), Denies headache(s) and Denies poor appetite Eyes Reports no additional complaints ENT Denies dysphagia, Denies dizziness, Denies headache(s) and Denies odynophagia Card Denies chest pain, Denies syncope, Denies edema, Denies irregular heart rhythm, Denies lightheadedness and Denies dyspnea Resp Denies cough and Denies dyspnea GI Denies abdominal pain, Denies constipation, Denies dysphagia, Denies diarrhea, Denies nausea, Denies odynophagia and Denies vomiting Reports no additional complaints Musc Reports no additional complaints and Denies abnormal gait Skin/Breast Reports system reviewed and no additional complaints, except as documented Neuro Denies abnormal gait, Denies dizziness, Denies syncope and Denies headache(s) Psych Reports depression, Reports anhedonia, Denies homicidal ideation and Denies suicidal ideation Physical exam (Primary Care) Tobacco/Smoking Status: Tobacco use Status Tobacco use date assessed 03/29/25 03/29/25 13:17 Patient Tobacco Use Status Never used Tobacco 03/29/25 13:17 e-Cigarette/Vaping Use Never Used 03/29/25 13:17 PHQ-9: PHQ-9 Score PHQ-9: Total score 27 03/29/25 13:40 Depression Screening Interpretation: Positive Thrive Assessment: Date of Thrive Assessment Date Thrive assessed 03/29/25 03/29/25 13:17 Currently or been in a relationship where the following occur: I choose not to answer Const Other: Telemedicine visit with real time audio video Received verbal consent given by patient for today's visit via telemedicine Physical examination is not performed as visit / consultation today is done over videoconference - Telehealth visit All physical findings indicated here, if present, are as per patient's and / or caregivers / proxy's report and visual inspection over videoconference, if appropriate or applicable Telehealth Telehealth Telehealth Platform: Telephone Location of provider rendering services: practice address Location of patient: other Patient Identification confirmed using: Name, : Yes Telehealth method: voice only Patient verbally consented to treatment: Yes Patient verbally consented to billing insurance company: Yes Patient informed of any privacy concerns related to visit: Yes Minutes spent on Phone/Video with Pt.: 15 Coding Level of Care Code Tele Est Pt Level 3 (02777) Diagnoses Depression, unspecified depression type F32.A Depression Type: unspecified Time Spent (min) 31 Assessment & Plan Assessment & Plan (1) Depression: Code(s): F32.A - Depression, unspecified Category: Medical Qualifiers: Depression Type: unspecified Qualified Code(s): F32.A - Depression, unspecified Plan: The patient reports a history depression and strong family history of depression. The patient father was depressed to the point of not leaving the house. Reports that he had a psychiatrist about 6 years ago and used to take fluoxetine and a stimulant for ADHD. He was referred to psychiatry but he has been having difficulty finding a provider that we will do on-site visits. Bupropion HCl SR 100 mg daily started. Reach out to the communication navigation staff to assist the patient in finding a psychiatrist as soon as possible at our previous visit Today the patient reports during visit that he has a an appointment with a psychiatrist in about 15 minutes after this appointment. We will defer to the psychiatrist to make any changes regarding his psych medication and have the patient follow up in 3 months via telehealth because he has been traveling for work. He continues to denies SI/HI
--- OUTSIDE RECORDS SUMMARY | 2025-03-29 13:47 | XMS_ITS | Clinical Summary ---
Author Organization [facility] Address [address] [place] [id number] Phone Care Team Providers Care Dry Cleaner Presser Name Role Phone Lien Ruiz Primary Care Provider [phone] Allergies Active Allergy Reactions Criticality Noted Date [...] topic Medical Devices Not on file Insurance [facility] Care Teams Dry Cleaner Presser Relationship Specialty Start Date End [place] [address] [email or web address] PCP - General Unknown Provider Specialty 01/19/19 Additional Source Comments The information contained in this document represents components of the legal health record. It is not the complete legal health record.[facility]
== END 2025-03-29 15:24 | disposition home or self-care (01) ==
LOC: HO.HMCH 13:30
DX: F32.A Depression, unspecified (principal)

== ENCOUNTER 2025-06-28 11:21 | Outpatient (AMB) | payer OTHER, SELFPAY ==
--- NOTE | 2025-06-28 11:21 | MHC.PC.OV ---
Intake Visit Reasons: hld/vit -d/depression Icer Machine Operator Required: No Accompanied by: Self / Same As Patient Allergies codeine (CODEINE) Allergy (Unknown, Verified 06/28/25 11:28) RASH Medication List - Last Reconciled 06/28/25 by CORINNA Goodman bupropion HCl SR 100 mg PO DAILY Tobacco use date assessed: 06/28/25 Dental Screening Dental Screen Date: 06/28/25 Did you have a dental visit in the last 12 months?: Yes Did you have a dental problem in the last 6 months where you did not have access to dental care?: No Was dental information given to patient?: Patient has dentist HPI hld/vit -d/depression HPI Details This is a medically necessary visit as the patient would typically be seen in the office, however, the patient is unable to come in the office so the visit was converted to an audiovisual, telephone visit format with patient's consent and request. Patient understands that this visit was in place of an in person visit and is aware of the risks of communicating via phone/computer and verbally consents. The patient is a 35-year-old male with significant past medical history of depression, ADHD He is presenting for follow up appointment to evaluate depression and previous medication that was started, along with Psychiatry referral that was placed The patient reports that he recently has been connecting with online Psychiatry and since had 3 different providers He will be meeting with the same provider that he met with the last time at his follow up appointment His Wellbutrin that was started at 100 mg was increased by Psychiatry to 300 mg However, there is a plan for med change. Plans to start fluoxetine and to taper down Wellbutrin The patient reports that he is doing okay in general, he describes it as he had worse days before Patient reports new concern of back pain, explains that he has a very physical job and he has to mask his pain at work He also states that the pain has been debilitating in the mornings but gets better has the day goes on He describes a stiffness and at times in the lower back. The patient reports that he can not take time off from work and has to plan head for physical therapy. Adding, that the pain feels like it is radiating down is legs as well, concerning him that he might have sciatica. [facility] Medical History ADHD Depression Surgical History H/O wisdom tooth extraction Family History Father FH: mental illness Chronic depression Mother No problems noted. 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 Juanito John, Luana La, Brian John and colleagues, with an educational drew from [employer]. Review of Systems Const Denies body aches, Denies chills, Denies fever(s), Denies headache(s) and Denies poor appetite Eyes Reports no additional complaints ENT Denies dysphagia, Denies dizziness, Denies headache(s) and Denies odynophagia Card Denies chest pain, Denies syncope, Denies edema, Denies irregular heart rhythm, Denies lightheadedness and Denies dyspnea Resp Denies cough and Denies dyspnea GI Denies abdominal pain, Denies constipation, Denies dysphagia, Denies diarrhea, Denies nausea, Denies odynophagia and Denies vomiting Reports no additional complaints Musc Denies abnormal gait, Reports back pain and Reports radiating pain into limb Skin/Breast Reports system reviewed and no additional complaints, except as documented Neuro Denies abnormal gait, Denies dizziness, Denies syncope and Denies headache(s) Psych Reports depression, Reports anhedonia, Denies homicidal ideation and Denies suicidal ideation Physical exam (Primary Care) Tobacco/Smoking Status: Tobacco use Status Tobacco use date assessed 06/28/25 06/28/25 11:24 Patient Tobacco Use Status Never used Tobacco 06/28/25 11:24 e-Cigarette/Vaping Use Never Used 06/28/25 11:24 Thrive Assessment: Date of Thrive Assessment Date Thrive assessed 03/29/25 06/28/25 11:24 Const Other: Telemedicine visit with real time audio video Received verbal consent given by patient for today's visit via telemedicine Physical examination is not performed as visit / consultation today is done over videoconference - Telehealth visit All physical findings indicated here, if present, are as per patient's and / or caregivers / proxy's report and visual inspection over videoconference, if appropriate or applicable Telehealth Telehealth Telehealth Platform: Telephone Location of provider rendering services: practice address Location of patient: address on file Patient Identification confirmed using: Name, : Yes Telehealth method: voice only Patient verbally consented to treatment: Yes Patient verbally consented to billing insurance company: Yes Patient informed of any privacy concerns related to visit: Yes Coding Level of Care Code Est Pt Level 3 (54942) Diagnoses Depression, unspecified depression type F32.A Depression Type: unspecified Bilateral low back pain with sciatica, sciatica laterality unspecified, unspecified chronicity M54.40 Chronicity: unspecified Back pain laterality: bilateral Sciatica presence: with sciatica Sciatica laterality: sciatica laterality unspecified Time Spent (min) 28 Assessment & Plan Assessment & Plan (1) Depression: Code(s): F32.A - Depression, unspecified Category: Medical Qualifiers: Depression Type: unspecified Qualified Code(s): F32.A - Depression, unspecified Plan: Encouraged CBT Previously started bupropion 100 mg was increased to 300 mg by online psychiatrist Recent plans to start fluoxetine and titrate down bupropion Denies SI/HI Follow up with Psychiatry as scheduled (2) Low back pain: Code(s): M54.50 - Low back pain, unspecified Category: Medical Qualifiers: Chronicity: unspecified Back pain laterality: bilateral Sciatica presence: with sciatica Sciatica laterality: sciatica laterality unspecified Qualified Code(s): M54.40 - Lumbago with sciatica, unspecified side Plan: Reports ongoing low back pain due to physical job demand. Describes as crippling, stiffness in the mornings at time that gets better as the day goes on. Lumbar x-ray ordered to further evaluate. We will try the patient on gabapentin 100 mg at bedtime p.r.n.. Physical therapy referral placed to evaluate and treat. The patient is also looking for on in office appointment after July 08 to the end of June to be evaluated for his back issue. Orders: Orders XR lumbar spine 2-3V 06/28/25 M54.50 - Low back pain, unspecified PT Evaluation and Treatment Today M54.40 - Lumbago with sciatica, unspecified side Medications: New gabapentin 100 mg PO BEDTIME PRN 30 caps 3RF back pain
== END 2025-06-28 11:53 | disposition home or self-care (01) ==
LOC: HO.HMCH 11:21
DX: F32.A Depression, unspecified (principal); M54.40 Lumbago with sciatica, unspecified side

== ENCOUNTER 2025-07-09 06:49 | Outpatient (REF) | payer OTHER, SELFPAY ==
--- NOTE | ~2025-07-09 | XR_ITS ---
EXAMINATION: XR LUMBOSACRAL SPINE CLINICAL INFORMATION: M54.50 - Low back pain, unspecified COMPARISON: None available. TECHNIQUE: AP and lateral views. FINDINGS: Mild multilevel endplate sclerosis. Decreased intervertebral disc height at L5-S1. Loss of the physiologic lumbar lordosis.. No acute cortical disruption or gross malalignment. No lytic or blastic lesions. XR/XR lumbar spine 2-3V IMPRESSION: Spondylosis at L5-S1. Loss of the physiologic lumbar lordosis. Consider positional versus muscle spasm. Electronically signed by: Liborio Wayne MD 07/09/2025 07:29 AM KAMINI HINSON
--- OUTSIDE RECORDS SUMMARY | 2025-07-09 06:52 | XMS_ITS | Clinical Summary ---
Author Organization [facility] Address [address] [address] Phone Care Team Providers Care Belt Maker Helper Name Role Phone Lien Ruiz Primary Care Provider [phone] Allergies Active Allergy Reactions Criticality Noted Date Comments Codeine Rash Low 03/19/2018 Medications buPROPion (WELLBUTRIN XL) 150 MG ER 24 hr tablet Take 1 tablet by mouth every morning. 03/29/2025 Active buPROPion (WELLBUTRIN XL) 300 MG ER 24 hr tablet Take 1 tablet by mouth every morning. 03/29/2025 Active cyclobenzaprine (FLEXERIL) 5 MG tablet Take 1 tablet (5 mg total) by mouth 3 (three) times a day as needed (spasm). 12 tablet 04/07/2025 Active Active Problems No known active problems Social History Tobacco Use Types Packs/Day Years [...] Answer Date Recorded No 12/20/2022 No 12/20/2022 Reliable internet access at home? Not on file 12/20/2022 Device with a working camera? Not on file Sex and Gender Information Value Date Recorded Sex Assigned at Not on file Legal Sex Male 9:08 PM EDT Gender Identity Not on file Sexual Orientation Not on file Last Filed Vital Signs Vital Sign Reading Time Taken Comments Blood Pressure 149/92 04/07/2025 9:17 AM EDT Pulse 57 04/07/2025 9:17 AM EDT Temperature 36.6 C (97.9 F) 04/07/2025 9:17 AM EDT Respiratory Rate 18 04/07/2025 9:17 AM EDT Oxygen Saturation 100% 04/07/2025 9:1 7 AM EDT Inhaled Oxygen Concentration - - Weight 81.6 kg (180 lb) 04/07/2025 9:17 AM EDT patient reported Height 172.7 cm (5' 8 ) 04/07/2025 9:17 AM EDT patient reported Body Mass Index 27.37 04/07/2025 9:17 AM EDT Plan of Treatment Health Maintenance Due Date Last Done Comments LIPID PANEL 1988 DEPRESSION SCREENING 2000 HEPATITIS C SCREENING 2006 HIV ONE-TIME SCREENING (18-6 5 YEARS) 2006 SCREENING FOR DIABETES 2023 01/19/2019 INFLUENZA VACCINE (#1) 2025 04/30/2021 COVID-19 VACCINE (3 - 2024-2 6 season) 2025 07/28/2021, 10/23/2020 Adult Td,Tdap Booster 03/28/2027 03/28/2017 SMOKING STATUS SCREENING (On ce After 26 Yrs) Completed 04/07/2025 HEPATITIS A VACCINES Aged Out No long [...] topic Medical Devices Not on file [place] [id number] [facility] [address] [place] [address] [facility] [employer] [place] [address] [place] [address] [place] [id number] [facility] [place] [id number] [facility] [employer] Care Teams Belt Maker Helper Relationship Specialty Start Date End Date Lien Ruiz PA [address] [place] [address] [email or web address] PCP - General Unknown Provider Specialty 01/19/19 Additional Source Comments The information contained in this document represents components of the legal health record. It is not the complete legal health record.[facility]
--- OUTSIDE RECORDS SUMMARY | 2025-07-09 06:52 | XMS_ITS | Data Portability ---
Author Organization [facility], [place] Address [address] [place] [id number] Care Team Providers Care Nurses Aide Name Role Phone YURIY FREIRE Primary Care Provider [phone] Assessment Encounter Date Assessment Date Assessment LastModified [...] out some fluid. He lives up in [place] and he's down here working. I'm going to keep him out of work for now and then he's just going to end up going back home. I told him he needs to find an orthopedist up there and I recommended he get an MRI of that shoulder. [email or web address] Not available 09/29/2022 11:25:28 Plan of Treatment [...] Recorded Time Pain of right shoulder joint [id number] 00 Active 2022 ROSA LI MD [address] [place], [id number], [facility] 09:37:55 Problem Notes None recorded. Medical Equipment None Reported. Allergies No known drug allergies Medications Not known to be on any medication Vitals Date Recorded Body height Body mass index (BMI) Body weight Provider Name and Address Organization Details Last Updated DateTime 09/28/2022 172.72 cm 26.6 kg/m2 35045.66 g ROSA LI MD [address], [place], [address], [facility] 09/28/2022 09:33:00 Social History Question Answer Notes LastModified by Organizat ion Details LastModified Time Tobacco Smoking Status Never Smoker ROSA LI MD [address], [place], [address], [facility] 09/28/2022 09:25:54 Are You Blind Or Do You Have Difficulty Seeing? No [email or web address] Information not available 09/28/2022 What Is Your Level Of Caffeine Consumption? Moderate [email or web address] Information not available 09/28/2022 Are You Deaf Or Do You Have Serious Difficulty Hearing? No [email or web address] Information not available 09/28/2022 Which Of Your Hands Is Dominant? Right [email or web address] Information not available 09/28/2022 Do You Have A Medical Power Of Political Worker? No [email or web address] Information not available 09/28/2022 What Was The Date Of Your Most Recent Tobacco Screening? 09/28/2022 [email or web address] Information not available 09/28/2022 How Much Tobacco Do You Smoke? No [email or web address] Information not available 09/28/2022 Have You Used IV Drugs? No [email or web address] Information not available 09/28/2022 Sex: Unknown Functional Status Question Answer Note LastModified by Organizat ion Details LastModified Time Do you use any illicit or recreational drugs? No [email or web address] Information not available 09/28/2022 Do you or have you ever used any other forms of tobacco or nicotine? No [email or web address] Information not available 09/28/2022 What is your level of alcohol consumption? Moderate [email or web address] Information not available 09/28/2022 Are you able to care for yourself independently? 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 Never used electronic cigarettes [email or web address] Information not available 09/28/2022 What is your exercise level? None [email or web address] Information not available 09/28/2022 Mental Status None recorded. Family History Nothing Reported. Medical History No medical history recorded. Past Encounters Encounter ID Performer Location Encounter Start Date Encounter Closed Date Diagnosis/Indication Diagnosis SNOMED-CT Code Diagnosis ICD10 Code Diagnosis IMO Codes Diagnosis Note [id number] MD [place] [facility] [address] [place] [address] 09/28/2022 08:39:56 09/28/2022 15:42:31 Pain of right shoulder joint [id number] 3219446 M25.511 Health Concerns Section Related Observation LastModified by Organization Detai ls LastModified Time None Recorded Concern Status LastModified by Organization Details LastModified Time None Recorded Advance Directives Directive None Recorded Payers Insurance Date Sequence Insurance Name Policy Number Policy Vail Covered Member ID Vail Member ID Guarantor Name 10/13/2022 1 [facility] [id number] Albaro Ryan [id number] Albaro Ryan Notes Date Note Type Note [...] ROSA LI MD [address], [place], [address], [facility] 09/29/2022 16:52:02
== END 2025-07-09 06:50 | disposition home or self-care (01) ==
LOC: HO.XRAY 06:49
DX: M54.42 Lumbago with sciatica, left side (principal); F32.A Depression, unspecified; F90.9 Attention-deficit hyperactivity disorder, unspecified type
CPT/HCPCS: 72100

== ENCOUNTER → 2025-07-09 06:52 | Outpatient (BNV) | payer OTHER, SELFPAY | PROVIDERS: Visit Provider Radiology Diagnostic Radiology | DX: M47.817 Spondylosis without myelopathy or radiculopathy, lumbosacral region (principal) | CPT/HCPCS: 72100 ==

== ENCOUNTER 2025-07-09 08:14 | Outpatient (AMB) | payer OTHER, SELFPAY ==
--- NOTE | 2025-07-09 08:17 | A.OFFPC_ITS ---
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 He reports the pain is worse in the mornings, describing it as debilitating with stiffness, and it improves slightly during the day. The pain is localized mostly to the left side and occasionally radiates down the leg. He denies pain in any other joints. The patient's symptoms are exacerbated by lying in a flat position, which causes him to wake up and have to crawl on his hands and knees. He has found relief by sleeping in a seated position, such as on a couch with his feet up or in a chair, which mimics his posture at work. 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 He is worried about attempting exercise without guidance for fear of worsening his condition. Regarding medications, the patient has been taking gabapentin and has not experienced any adverse effects. He has been evaluated by a psychiatrist and is being switched from bupropion to fluoxetine, which will be taken with Adderall. He is being titrated up on fluoxetine and Adderall but does not know the specific dosages. 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 - Housing/Sleep: He is currently sleepin g in a seated position, either on a couch or in a chair, to alleviate his back pain. - Exercise: The patient is hesitant to e xercise due to fear of worsening his back pain and lack of knowledge on correct exercises. - Functional Status: The back pain can b e debilitating in the mornings, impacting his ability to move. Results - Imaging: An X-ray was performed today, results pending review. PFSH Medical History ADHD Depression Surgical History H/O wisdom tooth extraction Family History Father FH: mental illness Chronic depression Mother No problems noted. 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 Depression Screening Interpretation: Positive Depression Screening Done: Yes Source: Developed by Drs. Juanito John, Luana La, Brian John and colleagues, with an educational drew from [employer]. Thrive Questionnaire Date Thrive assessed: 03/29/25 I am a: Patient What is your living situation today?: I do not have a steady places to live I am living in a car Within the past 12 months, did the food you bought not last and you didn't have the money to get more?: Never true Within the past 12 months, did you worry whether your food would run out before you got money to buy more?: Never true Do you have trouble paying for medicines?: I choose not to answer this question Do you have trouble getting transportation to medical appointments?: No Do you have trouble paying your heating and electricity bill?: I choose not to answer this question Do you have trouble taking care of your child, family member or friend?: No Do you have trouble with day-to-day activities such as bathing, preparing meals, shopping, managing finances, etc.?: Yes Are you currently unemployed and looking for a job?: No Are you interested in more education?: Yes Currently or been in a relationship where the following occur: I choose not to answer THRIVE Score: 1 LOVELY-7 AMB Questionnaire LOVELY-7 Date LOVELY - 7 assessed: 03/29/25 Source: Developed by Drs. Juanito John, Luana La, Brian John and colleagues, with an educational drew from [employer]. Review of Systems Narrative Review of Systems - Musculoskeletal: Reports back pain, mainly on the left side, which is worse in the morning with stiffness; occasionally radiates down the leg. Denies pain in other joints. Const Denies body aches, Denies chills, Denies fever(s), Denies headache(s) and Denies poor appetite Eyes Reports no additional complaints ENT Denies dysphagia, Denies dizziness, Denies headache(s) and Denies odynophagia Card Denies chest pain, Denies syncope, Denies edema, Denies irregular heart rhythm, Denies lightheadedness and Denies dyspnea Resp Denies cough and Denies dyspnea GI Denies abdominal pain, Denies constipation, Denies dysphagia, Denies diarrhea, Denies nausea, Denies odynophagia and Denies vomiting Reports no additional complaints Musc Denies abnormal gait, Reports back pain (on the left side of lower back) and Reports radiating pain into limb (at times, but not lately) Skin/Breast Reports system reviewed and no additional complaints, except as documented Neuro Denies Abnormal speech present, Denies abnormal gait, Denies dizziness, Denies syncope and Denies headache(s) Psych Reports depression, Reports anhedonia, Denies homicidal ideation and Denies suicidal ideation Physical exam (Primary Care) Vital Signs: Last Vital Signs Temp 97.1 F 07/09/25 08:18 Pulse 57 07/09/25 08:18 BP 142/92 H 07/09/25 08:18 Pulse Ox 97 07/09/25 08:18 Oxygen Delivery Method Room Air 07/09/25 08:18 BMI result Body Mass Index 26.9 Tobacco/Smoking Status: Tobacco use Status Tobacco use date assessed 07/09/25 07/09/25 08:25 Patient Tobacco Use Status Never used Tobacco 07/09/25 08:25 e-Cigarette/Vaping Use Never Used 07/09/25 08:25 Depression Screening Interpretation: Positive Thrive Assessment: Date of Thrive Assessment Date Thrive assessed 03/29/25 07/09/25 08:25 Currently or been in a relationship where the following occur: I choose not to answer Narrative Physical Exam - Musculoskeletal: Straight leg raise on the left elicits discomfort in the back. Straight leg raise on the right is negative. No tenderness to palpation of the back bilaterally. Strength is grossly intact with resisted leg extension bilaterally. Const General: healthy appearing, no acute distress, alert and awake Nutritional Appearance: well nourished Orientation/consciousness: oriented to person, oriented to place and oriented to time HENMT Ears: hearing grossly normal bilaterally General nose exam: Normal external nose present Eyes Conjunctivae: conjunctivae normal Sclerae: sclerae normal Pupils: Equal, round and reactive pupils present Neck Neck: Yes no lymphadenopathy and Yes no JVD Thyroid: Thyroid normal Carotids: no bruits Resp Effort & Inspection: normal respiratory effort and not tachypneic Auscultation: no crackles, no rales, no rhonchi and no wheezes Cardio Rate: regular rate Rhythm: regular rhythm Heart sounds: S1 normal heart sound present, S2 normal heart sound present, no murmurs and normal S1 and S2 GI Palpation (GI): Soft to palpation, nontender, no hepatomegaly and no splenomegaly Auscultation: normal bowel sounds General: Yes no CVA tenderness Back/Spine/Pelvis Back: no CVA tenderness Thoracic/Lumbar Spine: straight leg raise negative bilaterally, No paraspinal muscle tenderness and No lumbar spinal tenderness Skin General skin exam: dry skin and other (Right anterior shoulder lipoma) Neuro General: oriented to person, oriented to place and oriented to time Cranial nerves: Yes Equal, round and reactive pupils present Speech: No Abnormal speech present Gait exam (Neuro): Normal gait present Motor exam (neuro): no tremor noted Extrem Right upper extremity: full ROM Left upper extremity: full ROM Right lower extremity: full ROM; no edema Left lower extremity: full ROM; no edema Psych Mental Status: mental status grossly normal Speech and movement: Normal speech and movement present Affect: normal affect Attitude: cooperative Thought process: Normal thought process present Coding Level of Care Code Est Pt Level 3 (82548) Diagnoses Bilateral low back pain with sciatica, sciatica laterality unspecified, unspecified chronicity M54.40 Chronicity: unspecified Back pain laterality: bilateral Sciatica presence: with sciatica Sciatica laterality: sciatica laterality unspecified Depression, unspecified depression type F32.A Depression Type: unspecified Attention deficit hyperactivity disorder (ADHD), unspecified ADHD type F90.9 Attention deficit-hyperactivity disorder type: unspecified Time Spent (min) 34 Assessment & Plan Assessment & Plan (1) Low back pain: Code(s): M54.50 - Low back pain, unspecified Category: Medical Qualifiers: Chronicity: unspecified Back pain laterality: bilateral Sciatica presence: with sciatica Sciatica laterality: sciatica laterality unspecified Qualified Code(s): M54.40 - Lumbago with sciatica, unspecified side Plan: The patient presents with chronic back pain, worse in the mornings, localized to the left side, with occasional radiation. He has a history of prolonged sitting at work and finds relief by sleeping in a seated position. He has been taking gabapentin without adverse effects. A referral to physical therapy will be placed. The patient was advised to call [facility] to schedule an appointment as soon as possible. Lumbar x- ray was also ordered and completed awaiting results. (2) Depression: Code(s): F32.A - Depression, unspecified Category: Medical Qualifiers: Depression Type: unspecified Qualified Code(s): F32.A - Depression, unspecified Plan: The patient is being managed by a psychiatrist and is switching from bupropion to fluoxetine and Adderall. There are no expected conflicts between his new psychiatric medications and gabapentin. A follow-up appointment is scheduled in three months to monitor progress. (3) ADHD: Code(s): F90.9 - Attention-deficit hyperactivity disorder, unspecified type Category: Medical Qualifiers: Attention deficit-hyperactivity disorder type: unspecified Qualified Code(s): F90.9 - Attention-deficit hyperactivity disorder, unspecified type Plan: The patient is being managed by a psychiatrist and is switching from bupropion to fluoxetine and Adderall. There are no expected conflicts between his new psychiatric medications and gabapentin. A follow-up appointment is scheduled in three months to monitor progress. Plan Plan Patient was informed and verbally consented to the use of an ambient scribe for clinic note documentation during this visit. 1. Back Pain The patient presents with chronic back pain, worse in the mornings, localized to the left side, with occasional radiation. He has a history of prolonged sitting at work and finds relief by sleeping in a seated position. He has been taking gabapentin without adverse effects. A referral to physical therapy will be placed. The patient was advised to call [facility] to schedule an appointment as soon as possible 2. Depression The patient is being managed by a psychiatrist and is switching from bupropion to fluoxetine and Adderall. There are no expected conflicts between his new psychiatric medications and gabapentin. A follow-up appointment is scheduled in three months to monitor progress. Discussion Notes I discussed with the patient his chronic back pain, which is likely related to prolonged sitting and potential muscle imbalances. I recommended physical therapy as a long-term solution and provided a referral. I demonstrated several stretches that can help alleviate his symptoms in the interim. We also discussed his medication change for depression, and I confirmed there should be no interactions with his current gabapentin. A follow-up visit was scheduled for three months' time. Patient Instructions - Contact [facility] to schedule an appointment for your back pain as soon as possible. You can also look into private physical therapy clinics which may have sooner availability. - You can try some gentle stretching exercises for your back. These include lying on your back and dropping your bent legs from side to side, as well as side-lying leg raises. - Follow up for your medication management in three months. The appointment may be via telehealth, which will be confirmed. - Continue taking gabapentin as prescribed. - Follow your psychiatrist's instructions for starting fluoxetine and Adderall.
[2025-07-09 08:18] VITALS: BP 142/92; PULSE 57; TEMP 36.2; O2SAT 97; BMI 26.9
== END 2025-07-09 09:03 | disposition home or self-care (01) ==
LOC: HO.HMCH 08:15
DX: M54.40 Lumbago with sciatica, unspecified side (principal); F32.A Depression, unspecified; F90.9 Attention-deficit hyperactivity disorder, unspecified type